=== PATIENT | male | born 1960 | race Caucasian/White ===

== ENCOUNTER 2019-02-03 15:45 | Emergency (ER) | payer OTHER ==
[~2019-02-03] VITALS: Ht 172.7 cm; Wt 64.0 kg
[2019-02-03] MEDS ORDERED: NYSTATIN100000 UN1 PO (22:08)
== END 2019-02-03 22:27 | disposition home or self-care (01) ==
LOC: ED 15:45
DX: B37.0 Candidal stomatitis (principal); F17.200 Nicotine dependence, unspecified, uncomplicated
CPT/HCPCS: 70450; 71046; 80053; 80176; 81001; 85025; 96361; 96374; 99284-25; G0480; J7030

== ENCOUNTER 2019-02-08 23:41 | Emergency (ER) | payer OTHER ==
[~2019-02-08] VITALS: Ht 172.7 cm; Wt 64.0 kg
[~2019-02-08 23:41] MED LIST: NYSTATIN100000 UN1 PO
--- OUTSIDE RECORDS SUMMARY | 2019-02-08 23:44 | XMS ---
PreManage Notification: ASHELY PFEIFFER [employer]r Events No recent Security Events currently on file CRITERIA MET - [facility] [place] - 2 Visits in 30 Days CARE PROVIDERS There are no care providers on record at this time. Christine has no Care Guidelines for this patient. Jasmeet VISIT COUNT (12 MO.) [address] [facility] TOTAL 2 NOTE: Visits indicate total known visits. ED/C VISIT TRACKING (12 MO.) 02/08/2019 23:41 [facility] TYPE: Emergency COMPLAINT: - MEDICAL CLEARANCE 02/03/2019 15:[address] [facility] TYPE: Emergency COMPLAINT: - MULTIPLE COMPLAINTS DIAGNOSES: - Nicotine dependence, unspecified, uncomplicated - OTHER SPECIFIED DISORDERS OF EYE AND ADNEXA - Candidal stomatitis INPATIENT VISIT TRACKING (12 MO.) No inpatient visits to display in this time frame [email or web address]
== END 2019-02-09 01:59 | disposition home or self-care (01) ==
LOC: ED 23:41
DX: Z00.8 Encounter for other general examination (principal); Z87.891 Personal history of nicotine dependence
CPT/HCPCS: 80053; 80176; 81001; 84443; 85025; 99283; G0480

== ENCOUNTER 2023-02-04 21:57 | Emergency (ER) | payer OTHER ==
[~2023-02-04] VITALS: Ht 172.7 cm; Wt 73.9 kg
[2023-02-05 02:11] VITALS: BP 119/90
== END 2023-02-05 02:13 | disposition home or self-care (01) ==
LOC: ED 21:57
DX: M79.605 Pain in left leg (principal); Z87.891 Personal history of nicotine dependence
CPT/HCPCS: 93971; 99283-25